=== PATIENT | female | born 1965 | race Caucasian/White ===

== ENCOUNTER 2017-06-19 11:10 | Emergency (ER) | payer BC ==
[2017-06-19] MEDS: morphine 4 MG/ML VIAL IV (13:25)
[2017-06-19] MEDS: ONDANSETRON 4 MG INJ IV (13:25)
[2017-06-19 13:31] LABS: URINE BLOOD (Dip) POC Negative (NEGATIVE); URINE GLUCOSE (Dip) POC Negative (NEGATIVE); URINE KETONES (Dip) POC Negative (NEGATIVE); URINE LEUKOCYTE EST (Dip) POC Negative (NEGATIVE); URINE NITRITE (Dip) POC Negative (NEGATIVE); URINE TOTAL PROTEIN POC Negative (NEGATIVE)
[2017-06-19 13:37] LABS: ADD MAN DIFF? NO
[2017-06-19 13:39] LABS: BASOPHIL # 0.1 10^3/ul (0.0-0.1); BASOPHILS % 0.8 % (0.0-2.0); EOSINOPHILS # 0.3 10^3/ul (0.0-0.5); EOSINOPHILS % 2.4 % (0.0-7.0); HEMOGLOBIN 13.2 g/dl (12.0-16.0); LYMPHOCYTES # 2.7 10^3/ul (0.8-2.9); MEAN CORPUSCULAR HEMOGLOBIN 31.7 pg (29.0-33.0); MEAN CORPUSCULAR VOLUME 95.9 fl (82.0-101.0); MEAN PLATELET VOLUME 10.7 fl (7.4-10.4); MONOCYTE # 0.8 10^3/ul (0.3-0.9); MONOCYTES % 7.4 % (0.0-11.0); NEUTROPHIL # 6.5 10^3/ul (1.6-7.5); NEUTROPHILS % 63.2 % (39.0-77.0); PLATELET COUNT 221 10^3/UL (140-415); RED BLOOD COUNT 4.17 10^6/ul (4.20-5.40); RED CELL DISTRIBUTION WIDTH 12.6 % (11.5-14.5)
[2017-06-19 13:39] LABS: WHITE BLOOD COUNT 10.3 10^3/ul (4.8-10.8)
[2017-06-19 14:00] LABS: ALANINE AMINOTRANSFERASE 28 IU/L (13-69); ALBUMIN 4.2 g/dl (3.3-4.9); ALBUMIN/GLOBULIN RATIO 1.35; ALKALINE PHOSPHATASE 48 IU/L (42-121); ANION GAP 14 (8-16); ASPARTATE AMINO TRANSFERASE 19 IU/L (15-46); BILIRUBIN,INDIRECT 0.2 mg/dl (0-1.1); BILIRUBIN,TOTAL 0.2 mg/dl (0.2-1.3); BLOOD UREA NITROGEN 16 mg/dl (7-20); CALCIUM 9.4 mg/dl (8.4-10.2); CARBON DIOXIDE 22 mmol/L (21-31); CHLORIDE 112 mmol/L (97-110); GLUCOSE 97 mg/dl (70-220); LIPASE 120 U/L (23-300); POTASSIUM 4.2 mmol/L (3.5-5.1); SODIUM 144 mmol/L (135-144); TOTAL PROTEIN 7.3 g/dl (6.1-8.1)
[2017-06-19 14:34] LABS: VALPROATE 32 ug/ml (50-100)
== END 2017-06-19 16:08 | disposition home or self-care (01) ==
LOC: E/R 11:10
DX: M54.42 Lumbago with sciatica, left side (principal); R07.9 Chest pain, unspecified
CPT/HCPCS: 36415; 71045; 72100; 80053; 80164; 81003; 81025; 83690; 85025; 93005; 96374; 96375; 99285-25

== ENCOUNTER 2017-06-22 15:23 | Emergency (ER) | payer BC, MEDICAID ==
[2017-06-22] MEDS: morphine 2 MG INJ IV (17:51)
[2017-06-22] MEDS: KETOROLAC 15 MG INJ IV (17:52)
[2017-06-22] MEDS: METHYLPREDNISOLONE 125 MG INJ IV (17:52)
[2017-06-22] MEDS: HYDROmorphONE 1 MG/5 ML IV SYRINGE IV (19:14)
== END 2017-06-22 19:43 | disposition home or self-care (01) ==
LOC: FTE 15:23
DX: M62.830 Muscle spasm of back (principal); F17.210 Nicotine dependence, cigarettes, uncomplicated
CPT/HCPCS: 72131; 96374; 96375; 99285-25